=== PATIENT | female | born 1990 | race African-American/Black ===

== ENCOUNTER 2018-03-15 12:38 | Emergency (ER) | payer OTHER ==
[2018-03-15 12:42] VITALS: BMI 31.6
[2018-03-15] MEDS ORDERED: SODIUM CHLORIDE 1,000 ML IV STA (13:36)
--- NOTE | 2018-03-15 13:51 | PDOC ---
History of Present Illness - General Chief Complaint: Weakness Stated Complaint: WEAKNESS Time Seen by Provider: 03/15/18 12:58 History Source: Patient Exam Limitations: No Limitations - History of Present Illness Initial Comments: 03/15/18 14:00 28 y/o female presenting with mild generalized weakness since awakening approximately 2 hours ago. Patient is complaining of bilateral feet pain and myotatic intimately for the past month. Patient denies fever, chills, nausea, urinary complaints, abdominal pain, vaginal discharge. Patient states is approx 16 weeks and had a normal ultrasound 3 weeks ago. Th pt has a first appointment scheduled with Dr. Zhong next week . Severity: mild Associated Symptoms: reports: weakness. denies: fever/chills, headaches, nausea /vomiting, rash Past History - Travel Traveled outside of the country in the last 30 days: No - Past Medical History Allergies/Adverse Reactions: Allergies Allergy/AdvReac Type Severity Reaction Status Date / Time levofloxacin [From Levaquin] Allergy Severe Hives Verified 03/15/18 12:40 Home Medications: Ambulatory Orders No115/Iron/Folic Acid [ 19 Chewable Tablet] 1 tab PO DAILY COPD: No - Suicide/Smoking/Psychosocial Hx Smoking History: Never smoked Have you smoked in the past 12 months: No Hx Alcohol Use: No Drug/Substance Use Hx: No Substance Use Type: None Patient Lives Alone: No Lives with/in: spouse/SO Review of Systems - Review of Systems Able to Perform ROS?: No Constitutional: Yes: Weakness (generalized) HEENTM: No: Symptoms Reported Respiratory: No: Symptoms reported Cardiac (ROS): No: Symptoms Reported ABD/GI: No: Symptoms Reported : No: Symptoms Reported Musculoskeletal: No: Symptoms Reported Integumentary: No: Symptoms Reported Neurological: Yes: Weakness (mild generalized) Hematologic/Lymphatic: No: Symptoms Reported *Physical Exam - Vital Signs Last Vital Signs Temp Pulse Resp BP Pulse Ox 98.8 F 92 H 12 109/66 100 03/15/18 12:40 03/15/18 12:40 03/15/18 12:40 03/15/18 12:40 03/15/18 12:40 - Physical Exam General Appearance: Yes: Nourished, Appropriately Dressed. No: Apparent Distress HEENT: positive: EOMI, RUPAL, TMs Normal, Pharynx Normal. negative: Pale Conjunctivae Neck: positive: Supple Respiratory/Chest: positive: Lungs Clear, Normal Breath Sounds. negative: Respiratory Distress, Accessory Muscle Use Cardiovascular: positive: Regular Rhythm, Regular Rate. negative: Murmur Gastrointestinal/Abdominal: positive: Soft. negative: Tenderness Integumentary: positive: Normal Color, Warm, Moist Neurologic: positive: Motor Strength 5/5 (ambulatory). negative: Normal Mood/ Affect ED Treatment Course - LABORATORY CBC & Chemistry Diagram: 03/15/18 13:55 03/15/18 13:55 Medical Decision Making - Medical Decision Making 03/15/18 14:01 Patient here with complaints of bilateral feet aching for the past few weeks mild generalized weakness past 2 hours, and intermittent headache for the past month. Patient on exam had no neural focal deficits but during questioning stated minimal by mouth intake and fluid intake for the past week secondary to complaints of intermittent heartburn. 03/15/18 14:07 Patient concerning for electrolyte imbalance, infection, anemia, symptoms of . Patient ordered for labs, urine and IV fluids. 03/15/18 15:26 Patient states feeling much better with no complaints presently. Explained to the patient to eat small frequent meals and drinking plenty of fluids. 03/15/18 15:28 Laboratory Tests 03/15/18 03/15/18 03/15/18 13:55 13:55 13:55 WBC 8.4 Hgb 11.7 Hct 33.7 Plt Count 224 Neutrophils % 70.4 D Sodium 140 Potassium 3.7 Chloride 108 H Carbon Dioxide 26 Anion Gap 6 L BUN 8 Creatinine 0.6 Creat Clearance w eGFR > 60 Random Glucose 81 Calcium 8.7 Magnesium 1.7 L Total Bilirubin 0.3 AST 30 ALT 45 Alkaline Phosphatase 46 Total Protein 7.0 Albumin 3.3 L Urine Ketones Negative Urine Blood Negative Urine Nitrite Negative Ur Leukocyte Esterase Negative *DC/Admit/Observation/Transfer Diagnosis at time of Disposition: Weakness - Discharge Dispostion Disposition: HOME Condition at time of disposition: Improved - Referrals Referrals: Johan Lynch MD [Primary Care Provider] - - Patient Instructions Printed Discharge Instructions: Eating for Appropriate Weight Gain During , Managing Symptoms of Additional Instructions: Remember to drink plenty of fluids Throughout the day eating small frequent meals. Please follow up with her FOOD QUALITY TESTER as scheduled. Return to the ED if symptoms worsen. - Post Discharge Activity
[2018-03-15 14:05] LABS: BASO % 0.5 % (0-2.0); EOS % 1.7 % (0-4.5); HEMATOCRIT 33.7 % (32.4-45.2); HEMOGLOBIN 11.7 GM/dL (10.7-15.3); LYMPH % 19.1 % (8-40); MCH 30.9 pg (25.7-33.7); MCHC 34.6 g/dl (32.0-36.0); MEAN CELL VOLUME 89.3 fl (80-96); MEAN PLT VOLUME 7.9 fl (7.5-11.1); MONO % 8.3 % (3.8-10.2); NEUT % 70.4 % (42.8-82.8); PLATELET COUNT 224 K/MM3 (134-434); RBC 3.78 M/mm3 (3.60-5.2); RDW 13.9 % (11.6-15.6); WHITE BLOOD COUNT 8.4 K/mm3 (4.0-10.0)
[2018-03-15 14:06] LABS: URINE APPEARANCE CLEAR; URINE BILIRUBIN NEGATIVE (<2.0 mg/dL); URINE COLOR DKYELLOW; URINE GLUCOSE (UA) NEGATIVE (NEGATIVE); URINE KETONE NEGATIVE (NEGATIVE); URINE LEUK ESTERASE NEGATIVE (NEGATIVE); URINE NITRITE NEGATIVE (NEGATIVE); URINE PROTEIN NEGATIVE (NEGATIVE); URINE UROBILINOGEN NEGATIVE mg/dL (0.2-1.0)
[2018-03-15 14:20] LABS: CHLORIDE 108 mmol/L (98-107); POTASSIUM 3.7 mmol/L (3.5-5.1); SODIUM 140 mmol/L (136-145)
[2018-03-15 14:24] LABS: ALBUMIN 3.3 g/dl (3.4-5.0); ANION GAP 6 MMOL/L (8-16); BLOOD UREA NITROGEN 8 mg/dL (7-18); CALCIUM 8.7 mg/dL (8.5-10.1); CO2 26 mmol/L (21-32); GLUCOSE,RANDOM 81 mg/dL (74-106); MAGNESIUM 1.7 mg/dL (1.8-2.4)
[2018-03-15 14:29] LABS: ALK PHOS 46 U/L (45-117); BILIRUBIN,TOTAL 0.3 mg/dL (0.2-1.0); CREATININE 0.6 mg/dL (0.55-1.02); SGOT/AST 30 U/L (15-37); SGPT/ALT 45 U/L (12-78)
[2018-03-15 15:41] VITALS: BP 110/60; PULSE 82; TEMP 97.7
== END 2018-03-15 15:41 | disposition home or self-care (01) ==
LOC: JER 12:38
PROC: 3E0337Z Introduction of Electrolytic and Water Balance Substance into Peripheral Vein, Percutaneous Approach (ICD-10-PCS; principal; 2018-03-15)
DX: O26.892 Other specified pregnancy related conditions, second trimester (principal); R53.1 Weakness; Z3A.16 16 weeks gestation of pregnancy
CPT/HCPCS: 36415; 80053; 81003; 83735; 85025; 87086; 96360; 99285-25; J7030

== ENCOUNTER 2018-08-14 12:00 | Inpatient (IN) | payer OTHER ==
[2018-08-14] MEDS ORDERED: ELECTROLYTE-148 SOLN 500 ML IV ONE (12:31)
[2018-08-14] MEDS ORDERED: CITRIC ACID/SODIUM CITRATE 30 ML UNIT-DOSE CUP PO ONE (12:31)
--- NOTE | 2018-08-14 12:36 | HP ---
Past Medical History - Admission History of Present Illness: 28 y/o female here for scheduled delivery due to breech presentation. also complicated by elevated liver enzymes in 3rd trimester, no signs of pre Eclampsia or fatty liver. A1GDM, poor compliance. Advanced paternal age. No other issues/concerns. History Source: Patient, Medical Record Limitations to Obtaining History: No Limitations - Past Medical History Cardiovascular: No: HTN Pulmonary: No: Asthma Gastrointestinal: No: GERD Hepatobiliary: No: Hepatitis B, Hepatitis C ...: 1 Heme/Onc: No: Anemia Infectious Disease: No: HIV, MRSA Psych: No: Anxiety, Bipolar, Depression - Past Surgical History Past Surgical History: Yes: None Hx Myomectomy: No Hx Transabdominal Cerclage: No - Smoking History Smoking history: Never smoked Have you smoked in the past 12 months: No - Alcohol/Substance Use Hx Alcohol Use: No History of Substance Use: reports: None - Social History Usual Living Arrangement: Yes: With Spouse ADL: Independent History of Recent Travel: No Home Medications - Allergies Allergies/Adverse Reactions: Allergies Allergy/AdvReac Type Severity Reaction Status Date / Time levofloxacin [From Levaquin] Allergy Severe Hives Verified 08/01/18 10:25 Quinolones Allergy Verified 08/01/18 10:40 - Home Medications Home Medications: Ambulatory Orders No115/Iron/Folic Acid [ 19 Chewable Tablet] 1 tab PO DAILY Review of Systems - Review of Systems Constitutional: reports: No Symptoms Eyes: reports: No Symptoms HENT: reports: No Symptoms Neck: reports: No Symptoms Cardiovascular: reports: No Symptoms Respiratory: reports: No Symptoms Gastrointestinal: reports: No Symptoms Genitourinary: reports: No Symptoms Breasts: reports: No Symptoms Reported Musculoskeletal: reports: No Symptoms Integumentary: reports: No Symptoms Neurological: reports: No Symptoms Endocrine: reports: No Symptoms Hematology/Lymphatic: reports: No Symptoms Psychiatric: reports: No Symptoms Physical Exam - Maternity Constitutional: Yes: Well Nourished, No Distress, Calm Eyes: Yes: Conjunctiva Clear, EOM Intact HENT: Yes: Atraumatic, Normocephalic Neck: Yes: Supple, Trachea Midline Cardiovascular: Yes: Regular Rate and Rhythm Lungs: Clear to auscultation Breast(s): Yes: WNL - Abdominal Exam/OB Number of Fetuses: Single Presentation: Breech Category: I Accelerations: Uniform Decelerations: None - Vaginal Exam/OB Amniotic Membrane Status: Intact - Physical Exam Psychiatric: Yes: Alert, Oriented Hemorrhage Risk Assessment - Risk Factors Medium Risk Factors: Yes: None High Risk Factors: Yes: None Risk Score: 1 Risk Level: Medium Risk Problem List - Problems (1) Breech presentation of fetus Code(s): O32.1XX0 - MATERNAL CARE FOR BREECH PRESENTATION, UNSP Assessment/Plan 28 y/o with SIUP at 39 weeks, breech, for delivery AFVSS FHTs cat 1 NPO Garza Anesthesia/nursery aware
[2018-08-14 12:49] VITALS: BMI 30.7
[2018-08-14] MEDS ORDERED: ELECTROLYTE-148 SOLN 1,000 ML IV SCH (13:00)
[2018-08-14] MEDS ORDERED: OXYTOCIN 20 UNITS in 0.9% NS 40 UNIT/2,000 ML INFUS.BAG IV ONE (13:12)
[2018-08-14] MEDS ORDERED: TUBERCULIN PPD 5 TU/0.1ML SYRINGE (IN PATIENT USE ONLY) ID ONE (13:45)
[2018-08-14] MEDS ORDERED: ceFAZolin SODIUM 1 GM VIAL ONE (14:15)
[2018-08-14] MEDS ORDERED: morphine SULFATE/Preservative Free 0.5 MG/ML (1cc Syringe) ONE (14:16)
[2018-08-14] MEDS ORDERED: METHYLERGONOVINE MALEATE 0.2 MG/1 ML AMP IM PRN (14:24)
[2018-08-14] MEDS ORDERED: oxyCODONE HCL 5 MG TABLET PO PRN ×2 (14:24)
[2018-08-14] MEDS ORDERED: morphine SULFATE/Preservative Free 0.5 MG/ML (1cc Syringe) SPIN ONE (14:25)
[2018-08-14] MEDS ORDERED: PHENYLEPHRINE HCL 10 MG/1 ML SINGLE DOSE VIAL ONE (14:27)
[2018-08-14] MEDS ORDERED: OXYTOCIN 10 UNITS/ML VIAL ONE (14:34)
[2018-08-14] MEDS ORDERED: ONDANSETRON 4 MG/2 ML VIAL IVPUSH PRN (14:41)
--- NOTE | 2018-08-14 14:57 | OP ---
Operative Note - Note: Operative Date: 08/14/18 Pre-Operative Diagnosis: transverse lie Operation: primary delivery Post-Operative Diagnosis: Same as Pre-op Surgeon: Olena Roberson Automatic Spreader Operator: Blade Mcallister Anesthesiologist/CELLAR HAND: Jorge Luis Duenas Anesthesia: Spinal Specimens Removed: placenta Estimated Blood Loss (mls): 600 Operative Report Dictated: Yes
[2018-08-14] MEDS: OXYTOCIN 20 UNITS in 0.9% NS 20 UNIT/1,000 ML INFUS.BAG IV SCH (15:28)
[2018-08-14] MEDS: IBUPROFEN 800 MG/8 ML IJ IVPB PRN (17:01)
[2018-08-15 06:01] LABS: BASO % 0.4 % (0-2.0); EOS % 0.9 % (0-4.5); HEMOGLOBIN 11.3 GM/dL (10.7-15.3); LYMPH % 19.7 % (8-40); MCH 32.4 pg (25.7-33.7); MCHC 35.5 g/dl (32.0-36.0); MEAN CELL VOLUME 91.4 fl (80-96); MEAN PLT VOLUME 8.1 fl (7.5-11.1); MONO % 8.3 % (3.8-10.2); NEUT % 70.7 % (42.8-82.8); PLATELET COUNT 155 K/MM3 (134-434); WHITE BLOOD COUNT 8.6 K/mm3 (4.0-10.0)
--- NOTE | 2018-08-15 07:17 | PN ---
Progress Note (SOAP) - Subjective Chief Complaint: Pt found sitting in [facility] circ - Current Medications Current Medications: Active Medications Acetaminophen (Tylenol -) 650 mg PO Q4H PRN PRN Reason: FEVER Bisacodyl (Dulcolax Suppository -) 10 mg RC PRN PRN PRN Reason: CONSTIPATION Diphenhydramine HCl (Benadryl Injection -) 25 mg IVPUSH Q4H PRN PRN Reason: Pruritis Diphtheria/Tetanus/Acell Pertussis (Boostrix -) 0.5 ml IM .ONCE ONE Stop: 08/15/18 10:01 Oxytocin/Sodium Chloride (Normal Saline+20 Units Oxytocin -) 20 unit in 1,000 mls @ 125 mls/hr IV ASDIR MIN Last Admin: 08/14/18 15:28 Dose: 125 mls/hr Ibuprofen (Motrin -) 600 mg PO Q4H PRN PRN Reason: PAIN LEVEL 1 - 3 Ibuprofen (Caldolor Injection -) 800 mg IVPB Q8H PRN PRN Reason: PAIN LEVEL 6-10 Last Admin: 08/14/18 17:01 Dose: 800 mg Methylergonovine Maleate (Methergine Injection -) 0.2 mg IM Q4H PRN PRN Reason: Excessive Bleeding (L&D) Ondansetron HCl (Zofran Injection) 4 mg IVPUSH Q4H PRN PRN Reason: NAUSEA Oxycodone HCl (Roxicodone -) 10 mg PO Q4H PRN PRN Reason: PAIN LEVEL 7 - 10 Oxycodone HCl (Roxicodone -) 5 mg PO Q4H PRN PRN Reason: PAIN LEVEL 4 - 6 Multivit/Folic Acid/Iron ( Vitamins (Sjr) -) 1 tab PO DAILY [facility] Simethicone (Mylicon -) 80 mg PO Q4H PRN PRN Reason: GAS - Objective Vital Signs: Vital Signs Temperature 99.0 F 08/15/18 02:00 Pulse Rate 97 H 08/15/18 02:00 Respiratory Rate 20 08/15/18 05:00 Blood Pressure 104/63 08/15/18 02:00 O2 Sat by Pulse Oximetry (%) 99 08/14/18 16:00 Constitutional: Yes: Well Nourished, No Distress Gastrointestinal: Yes: WNL, Soft, Abdomen, Obese Musculoskeletal: Yes: WNL Extremities: Yes: WNL Edema: No Wound/Incision: Yes: Clean/Dry, Dressing Dry and Intact Labs Lab Results: CBC, BMP 08/15/18 05:56 Assessment/Plan POD 1 stable SP CS Plan COntinue present management
[2018-08-15] MEDS: IBUPROFEN 800 MG/8 ML IJ IVPB PRN (07:30)
--- NOTE | 2018-08-15 08:39 | PN ---
Progress Note (short form) - Note Progress Note: Anesthesia POD#1 S/P under Spinal with DM VSS,clear liquids started,no N/V Doing fine Loni Streeter MD.
[2018-08-15] MEDS: PRENATAL VITAMINS W/ FOLIC ACID TABLET (FP) PO SCH (09:20)
[2018-08-15] MEDS ORDERED: DIPHTH,PERTUSS(ACELL),TET 0.5 ML DISP.SYRIN IM ONE (10:00)
--- NOTE | 2018-08-15 10:24 | OP ---
DATE OF OPERATION: 08/14/2018 PREOPERATIVE DIAGNOSIS: Fetus in transverse lie. POSTOPERATIVE DIAGNOSIS: Fetus in transverse lie. PROCEDURE: Primary low transverse section. SURGEON: Olena Roberson MD MANDARIN TUTOR: Blade Mcallister PA-C ANESTHESIA: Spinal. ANESTHESIOLOGIST: Jorge Luis Duenas MD COMPLICATIONS: None. ESTIMATED BLOOD LOSS: 600 mL. COUNTS: Sponge, needle, and instrument counts correct. DISPOSITION: Stable to PACU. SPECIMENS REMOVED: Placenta. BRIEF HISTORY AND PROCEDURE: Patient is a 28-year-old female who had been seen in the office with full term , noted to have a baby in breech presentation. The patient was scheduled for a primary delivery on August 14, 2018. Upon admission, consents were signed and one final evaluation with a bedside ultrasound revealed a fetus in a transverse position with the head to maternal right. At this point, the decision was made to proceed with the planned section. She was taken back to the operating room, given spinal anesthesia, and placed in a dorsal supine position. A Garza catheter had been placed under sterile conditions. She was prepped and draped in the usual sterile fashion, and a hard time-out was performed. A Pfannenstiel skin incision was made in the skin with the scalpel and carried to the underlying layer of rectus fascia sharply. The fascia was incised on either side of the midline sharply, and the fascia was tented upward and dissected off the underlying layer of rectus muscle sharply. The musculature was identified and laterally. The peritoneum was identified and entered bluntly to allow for adequate room for delivery. The bladder blade was then inserted. A transverse incision was created on the lower uterine segment and extended in a superior lateral direction bluntly. The infant was then able to be verted into a vertex position and delivered without difficulty. The anterior and posterior shoulders were delivered without difficulty, and the remainder of the delivered with ease. The cord was clamped twice and cut in between. The was taken over to the warmer to be assessed by Neonatology staff, where scores of 9 and 9 were confirmed. The placenta was delivered with the 3-vessel cord and was manually extracted and noted to be intact. The uterus was exteriorized from the abdomen, inspected of amniotic membrane and blood clot with dry lap sponge. The hysterotomy was reapproximated with a double-layer closure first using 1 Vicryl in a running locked fashion, second using a 0 Biosyn in a running locked fashion. Excellent hemostasis was achieved. Posterior cul-se-sac was suctioned. Bilateral tubes and ovaries were noted to be normal. The uterus was placed back into the abdomen. Bilateral gutters were inspected and cleared of all blood clot and debris. Hysterotomy was again reexamined and noted to be hemostatic. The peritoneum was reapproximated in a running fashion using 2-0 chromic. The musculature was reapproximated with 2 interrupted sutures using 2-0 chromic and 0 Biosyn. The fascia was reapproximated using 1 Vicryl in a running fashion. The subcutaneous tissue was irrigated and reapproximated in a running fashion using 1 Vicryl suture, and the skin was reapproximated using 3-0 Vicryl in a subcuticular fashion, and Steri-Strips were applied. Patient tolerated the procedure well and was recovering in stable condition in the PACU after the procedure. Sponge, needle and instrument counts were reported to be correct at the end of the case. OLENA ROBERSON DO /[id number] MTDD
[2018-08-15] MEDS ORDERED: BISACODYL 10 MG SUPP.RECT RC PRN (14:24)
[2018-08-15] MEDS: SIMETHICONE 80 MG TAB.CHEW (FP) PO PRN (16:27)
[2018-08-15] MEDS: IBUPROFEN 600 MG TABLET (FP) PO PRN ×2 (16:27→21:31)
[2018-08-15] MEDS: ACETAMINOPHEN 325 MG TABLET (FP) PO PRN ×2 (16:27→21:31)
[2018-08-16] MEDS: IBUPROFEN 600 MG TABLET (FP) PO PRN ×3 (08:16→22:05)
[2018-08-16] MEDS: SIMETHICONE 80 MG TAB.CHEW (FP) PO PRN ×3 (08:16→22:05)
[2018-08-16] MEDS: ACETAMINOPHEN 325 MG TABLET (FP) PO PRN ×3 (08:17→22:05)
[2018-08-16] MEDS: PRENATAL VITAMINS W/ FOLIC ACID TABLET (FP) PO SCH (10:01)
--- NOTE | 2018-08-16 10:15 | PN ---
Progress Note (SOAP) - Subjective Chief Complaint: Pt found sitting in [facility] circ - Current Medications Current Medications: Active Medications Acetaminophen (Tylenol -) 650 mg PO Q4H PRN PRN Reason: FEVER Last Admin: 08/16/18 08:17 Dose: 650 mg Bisacodyl (Dulcolax Suppository -) 10 mg RC PRN PRN PRN Reason: CONSTIPATION Diphenhydramine HCl (Benadryl Injection -) 25 mg IVPUSH Q4H PRN PRN Reason: Pruritis Oxytocin/Sodium Chloride (Normal Saline+20 Units Oxytocin -) 20 unit in 1,000 mls @ 125 mls/hr IV ASDIR MIN Last Admin: 08/14/18 15:28 Dose: 125 mls/hr Ibuprofen (Motrin -) 600 mg PO Q4H PRN PRN Reason: PAIN LEVEL 1 - 3 Last Admin: 08/16/18 08:16 Dose: 600 mg Ibuprofen (Caldolor Injection -) 800 mg IVPB Q8H PRN PRN Reason: PAIN LEVEL 6-10 Last Admin: 08/15/18 07:30 Dose: 800 mg Methylergonovine Maleate (Methergine Injection -) 0.2 mg IM Q4H PRN PRN Reason: Excessive Bleeding (L&D) Ondansetron HCl (Zofran Injection) 4 mg IVPUSH Q4H PRN PRN Reason: NAUSEA Oxycodone HCl (Roxicodone -) 10 mg PO Q4H PRN PRN Reason: PAIN LEVEL 7 - 10 Oxycodone HCl (Roxicodone -) 5 mg PO Q4H PRN PRN Reason: PAIN LEVEL 4 - 6 Multivit/Folic Acid/Iron ( Vitamins (Sjr) -) 1 tab PO DAILY [facility] Last Admin: 08/16/18 10:01 Dose: 1 tab Simethicone (Mylicon -) 80 mg PO Q4H PRN PRN Reason: GAS Last Admin: 08/16/18 08:16 Dose: 80 mg - Objective Vital Signs: Vital Signs Temperature 98.8 F 08/16/18 08:58 Pulse Rate 76 08/16/18 08:58 Respiratory Rate 20 08/16/18 08:58 Blood Pressure 111/60 08/16/18 08:58 O2 Sat by Pulse Oximetry (%) 99 08/14/18 16:00 Constitutional: Yes: Well Nourished, No Distress Cardiovascular: Yes: WNL Respiratory: Yes: WNL Gastrointestinal: Yes: WNL, Soft ....Post : Yes: Uterus firm, Uterus non-tender Breast(s): Yes: WNL Musculoskeletal: Yes: WNL Extremities: Yes: WNL Edema: No Wound/Incision: Yes: Clean/Dry, Well Approximated, Dressing Removed Neurological: Yes: WNL, Alert, Oriented Labs Lab Results: CBC, BMP 08/15/18 05:56 Assessment/Plan POD 2 stable SP CS Plan COntinue present management
[2018-08-16] MEDS: OXYTOCIN 20 UNITS in 0.9% NS 20 UNIT/1,000 ML INFUS.BAG IV SCH (20:13)
[2018-08-17 08:15] LABS: BASO % 0.4 % (0-2.0); EOS % 1.8 % (0-4.5); HEMATOCRIT 33.1 % (32.4-45.2); HEMOGLOBIN 11.7 GM/dL (10.7-15.3); LYMPH % 27.3 % (8-40); MCHC 35.4 g/dl (32.0-36.0); MEAN CELL VOLUME 93.2 fl (80-96); MEAN PLT VOLUME 8.1 fl (7.5-11.1); MONO % 8.8 % (3.8-10.2); NEUT % 61.7 % (42.8-82.8); PLATELET COUNT 178 K/MM3 (134-434); RBC 3.55 M/mm3 (3.60-5.2); RDW 15.2 % (11.6-15.6); WHITE BLOOD COUNT 9.1 K/mm3 (4.0-10.0)
--- NOTE | 2018-08-17 08:17 | PN ---
Post Progress Note - Subjective Subjective: 28 yo Para 1 status post primary , seen and evaluated. Doing well. Post Day: 3 Type of Delivery: Primary C/S Vital Signs: Vital Signs Temperature 98.7 F 08/16/18 21:38 Pulse Rate 80 08/16/18 21:38 Respiratory Rate 18 08/16/18 21:38 Blood Pressure 102/54 L 08/16/18 21:38 O2 Sat by Pulse Oximetry (%) 99 08/14/18 16:00 Breast Exam: Yes: Soft Uterus: Yes: Fundus Firm Incision: Yes: Sutures intact Abdomen/GI: Yes: Abdomen soft, Tolerating PO Lochia: Yes: Rubra Lochia, amount: Small Extremities: Yes: Calves non-tender Activity: Ambulating - Labs Labs: CBC WBC 8.6 K/mm3 (4.0-10.0) 08/15/18 05:56 RBC 3.50 M/mm3 (3.60-5.2) L 08/15/18 05:56 Hgb 11.3 GM/dL (10.7-15.3) 08/15/18 05:56 Hct 32.0 % (32.4-45.2) L 08/15/18 05:56 MCV 91.4 fl (80-96) 08/15/18 05:56 MCH 32.4 pg (25.7-33.7) 08/15/18 05:56 MCHC 35.5 g/dl (32.0-36.0) 08/15/18 05:56 RDW 15.0 % (11.6-15.6) 08/15/18 05:56 Plt Count 155 K/MM3 (134-434) 08/15/18 05:56 MPV 8.1 fl (7.5-11.1) 08/15/18 05:56 Absolute Neuts (auto) 6.1 K/mm3 (1.5-8.0) 08/15/18 05:56 Neutrophils % 70.7 % (42.8-82.8) 08/15/18 05:56 Lymphocytes % 19.7 % (8-40) 08/15/18 05:56 Monocytes % 8.3 % (3.8-10.2) 08/15/18 05:56 Eosinophils % 0.9 % (0-4.5) 08/15/18 05:56 Basophils % 0.4 % (0-2.0) 08/15/18 05:56 Nucleated RBC % 0 % (0-0) 08/15/18 05:56 Problem List - Problems (1) Status post primary low transverse section Code(s): Z98.891 - HISTORY OF UTERINE SCAR FROM PREVIOUS SURGERY Assessment/Plan Status post primary Stable Ambulation Analgesia as needed Continue post op care
[2018-08-17] MEDS: PRENATAL VITAMINS W/ FOLIC ACID TABLET (FP) PO SCH (09:30)
[2018-08-17] MEDS: IBUPROFEN 600 MG TABLET (FP) PO PRN ×2 (09:35→22:23)
[2018-08-17] MEDS: SIMETHICONE 80 MG TAB.CHEW (FP) PO PRN ×2 (09:36→22:24)
[2018-08-17] MEDS: ACETAMINOPHEN 325 MG TABLET (FP) PO PRN ×2 (09:36→22:23)
[2018-08-18] MEDS: IBUPROFEN 600 MG TABLET (FP) PO PRN (08:27)
[2018-08-18] MEDS: SIMETHICONE 80 MG TAB.CHEW (FP) PO PRN (08:28)
[2018-08-18] MEDS: ACETAMINOPHEN 325 MG TABLET (FP) PO PRN (08:28)
[2018-08-18 09:33] VITALS: BP 108/57; PULSE 74; TEMP 98.9
[2018-08-18] MEDS: PRENATAL VITAMINS W/ FOLIC ACID TABLET (FP) PO SCH (10:00)
--- NOTE | 2018-08-25 16:20 | PATH ---
Surgical Pathology Report Patient Name: ULYSSES SAINI [facility]. Rec. #: [id number] /Age/Gender: 1990 (Age: 28) / F Account: [id number] Location: [facility] OBS/COSTUME MAKER Taken: 08/14/2018 Received: 08/15/2018 Reported: 08/25/2018 Physicians: Olena Roberson M.D. Specimen(s) Received PLACENTA Clinical History Final Diagnosis PLACENTA: THIRD TRIMESTER PLACENTA. TRIVASCULAR CORD. MEMBRANES WITH NO DIAGNOSTIC ABNORMALITIES. He Electronically Signed Alex Vyas M.D. Gross Description The specimen is received fresh labeled placenta and is a 550 gram, 18.0 x 15.0 x 3.4 cm. placenta with attached membranes and umbilical cord. The attached membranes are ramirez, translucent with focal opacities and insert marginally. The umbilical cord measures 42 cm. in length and averages 1.3 cm. in diameter. The cord inserts eccentrically, 2.5 cm. to the nearest margin. No true knots or strictures are identified. Cut surface of the umbilical cord reveals 3 vessels. The surface is vickers blue with moderate fibrin deposition and appropriate caliber vessels. The maternal surface is red-brown with focal defects. Sectioning reveals red-brown, spongy parenchyma. No lesions are identified. Hearing Impaired Teacher sections are submitted in three cassettes as follows: 1- membrane rolls and umbilical cord; 2-3- full thickness sections of placenta. /08/22/[facility]
== END 2018-08-18 13:30 | disposition home or self-care (01) | DRG 540 ==
LOC: JLDR 12:00 → J3W 16:38
PROVIDERS: ADMIT Obstetrics & Gynecology; ATTEND Obstetrics & Gynecology
PROC: 10D00Z1 Extraction of Products of Conception, Low, Open Approach (ICD-10-PCS; principal; 2018-08-14)
DX: O32.2XX0 Maternal care for transverse and oblique lie, not applicable or unspecified (principal); O32.1XX0 Maternal care for breech presentation, not applicable or unspecified; Z3A.39 39 weeks gestation of pregnancy; Z37.0 Single live birth
CPT/HCPCS: 36415; 85025; 88307-TC

== ENCOUNTER 2019-03-10 08:59 | Emergency (ER) | payer OTHER ==
[2019-03-10 09:04] VITALS: TEMP 98.3; BMI 28.1
[2019-03-10] MEDS ORDERED: KETOROLAC TROMETHAMINE 30 MG/1 ML VIAL IVPUSH ONE (09:31)
[2019-03-10] MEDS ORDERED: SODIUM CHLORIDE 1,000 ML IV STA (09:31)
--- NOTE | 2019-03-10 09:48 | PDOC ---
History of Present Illness - General Chief Complaint: Pain Stated Complaint: ABD. PAIN Time Seen by Provider: 03/10/19 09:17 History Source: Patient - History of Present Illness Timing/Duration: reports: getting worse Quality: reports: sharpness Past History - Past Medical History Allergies/Adverse Reactions: Allergies Allergy/AdvReac Type Severity Reaction Status Date / Time levofloxacin [From Levaquin] Allergy Severe Hives Verified 03/10/19 09:04 Quinolones Allergy Verified 03/10/19 09:04 Home Medications: Ambulatory Orders Ibuprofen [Motrin -] 600 mg PO QID #28 tablet 03/10/19 Asthma: No Cancer: No Cardiac Disorders: No COPD: No Diabetes: No HTN: No Seizures: No Thyroid Disease: No - Reproductive History (#): 1 Para: 0 - Suicide/Smoking/Psychosocial Hx Smoking History: Never smoked Have you smoked in the past 12 months: No Hx Alcohol Use: No Drug/Substance Use Hx: No Substance Use Type: None Hx Substance Use Treatment: No Review of Systems - Review of Systems Constitutional: No: Chills, Fever ABD/GI: Yes: Abdominal cramping. No: Nausea, Vomiting : No: Dysuria, Flank Pain, Hematuria *Physical Exam - Vital Signs Last Vital Signs Temp Pulse Resp BP Pulse Ox 98.3 F 79 18 121/75 99 03/10/19 09:01 03/10/19 09:01 03/10/19 09:01 03/10/19 09:01 03/10/19 09:01 - Physical Exam General Appearance: Yes: Appropriately Dressed ED Treatment Course - LABORATORY CBC & Chemistry Diagram: 03/10/19 10:10 03/10/19 10:10 - RADIOLOGY Radiology Studies Ordered: Category Date Time Status ABDOMEN & PELVIS CT WITH CONTR [CT] Stat CT Scan 03/10/19 09:30 Ordered Medical Decision Making - Medical Decision Making 03/10/19 09:36 29-year-old female, s/p csection remotely, here with severe abdominal pain x 1 week, on and off that worsened yesterday. States pain is sharp with an intensity of 10 on a 10 now. No nausea, vomiting, change to bowel movements, dysuria, vaginal discharge, fever or chills. No history of similar pain. Not currently sexually active per ot see exam Abd pain Stable w/ diffuse ttp/guarding on exam Ddx many and includes appy, diverticulitis, biliary, torsion, PID, r/o -pain control -labs -CT 03/10/19 13:58 CT read as large cystic structure deep to R hemipelvis w/ fluid, cyst vs TOA, appendix unremarkable. Pain currently controlled. Pelvic exam wnl. US pending 03/10/19 15:09 US read as 4.4cm R ovarian cyst w/ small amount of FF, ?hemorrhagic cyst. Patient's pain currently controlled. Given size of cyst and increased risk of torsion, will c/w DIRECT SALES REPRESENTATIVE at this time to schedule close f/u 03/10/19 15:24 Case d/w Dr. Patten of DIRECT SALES REPRESENTATIVE, who was informed of ultrasound report. MChema also made aware that [facility], but called office while she was in ED and was told that she would not be able to be seen untill next week. Per Dr. Oneil, patient can wait to be seen as does not does not need immediate follow-up per MD. Patient made aware of this and told that she should come to ED for any worsening of symptoms, otherwise *DC/Admit/Observation/Transfer Diagnosis at time of Disposition: Ovarian cyst Qualifiers: Laterality: right Qualified Code(s): N83.201 - Unspecified ovarian cyst, right side - Discharge Dispostion Disposition: HOME Condition at time of disposition: Improved - Prescriptions Prescriptions: Ibuprofen [Motrin -] 600 mg PO QID #28 tablet - Referrals Referrals: Johan Lynch MD [Primary Care Provider] - - Patient Instructions Printed Discharge Instructions: Ovarian Cyst Additional Instructions: You have a right-sided ovarian cyst on your ultrasound. Size of cyst is about 4.4 cm. The cyst is at increased risk for twisting on itself and interrupting blood supply to the ovary. I called [facility] and they are able to see you at 1: 45 pm tomorrow take motrin for pain as directed Return to ER for worsening of symptoms as discussed in ED - Post Discharge Activity
[2019-03-10] MEDS ORDERED: KETOROLAC TROMETHAMINE 30 MG/1 ML VIAL ONE (09:56)
[2019-03-10 10:26] LABS: BASO % 0.6 % (0-2.0); EOS % 1.9 % (0-4.5); HEMATOCRIT 38.1 % (32.4-45.2); HEMOGLOBIN 12.7 GM/dL (10.7-15.3); LYMPH % 39.5 % (8-40); MCH 29.2 pg (25.7-33.7); MCHC 33.4 g/dl (32.0-36.0); MEAN CELL VOLUME 87.6 fl (80-96); MEAN PLT VOLUME 8.1 fl (7.5-11.1); PLATELET COUNT 217 K/MM3 (134-434); RBC 4.34 M/mm3 (3.60-5.2); RDW 13.7 % (11.6-15.6); WHITE BLOOD COUNT 5.3 K/mm3 (4.0-10.0)
[2019-03-10 10:36] LABS: PH,URINE 6.5 (5.0-8.0); URINE APPEARANCE CLEAR; URINE BILIRUBIN NEGATIVE (NEGATIVE); URINE COLOR YELLOW; URINE GLUCOSE (UA) NEGATIVE (NEGATIVE); URINE KETONE NEGATIVE (NEGATIVE); URINE LEUK ESTERASE NEGATIVE (NEGATIVE); URINE NITRITE NEGATIVE (NEGATIVE); URINE PROTEIN NEGATIVE (NEGATIVE)
[2019-03-10 10:52] LABS: ALBUMIN 3.8 g/dl (3.4-5.0); BILIRUBIN,TOTAL 0.6 mg/dL (0.2-1); BLOOD UREA NITROGEN 9.8 mg/dL (7-18); CALCIUM 9.1 mg/dL (8.5-10.1); CREATININE 0.7 mg/dL (0.55-1.3); POTASSIUM 4.1 mmol/L (3.5-5.1); TOT PROT 7.6 g/dl (6.4-8.2)
[2019-03-10 15:53] VITALS: BP 106/74; PULSE 83
== END 2019-03-10 15:53 | disposition home or self-care (01) ==
LOC: JER 08:59
PROC: 3E0333Z Introduction of Anti-inflammatory into Peripheral Vein, Percutaneous Approach (ICD-10-PCS; principal; 2019-03-10)
PROC: 3E0337Z Introduction of Electrolytic and Water Balance Substance into Peripheral Vein, Percutaneous Approach (ICD-10-PCS; 2019-03-10)
DX: N83.201 Unspecified ovarian cyst, right side (principal)
CPT/HCPCS: 36415; 74177-TC; 76830-TC; 76856-TC; 80053; 81003; 83690; 84703; 85025; 96361; 96374; 99283-25; J7030

== ENCOUNTER 2021-02-24 20:37 | Emergency (ER) | payer OTHER ==
[2021-02-24 20:41] VITALS: BP 115/73; PULSE 74; TEMP 97; BMI 25.8
== END 2021-02-24 22:28 | disposition home or self-care (01) ==
LOC: JERFT 20:37
DX: T16.1XXA Foreign body in right ear, initial encounter (principal)
CPT/HCPCS: 99281-25

== ENCOUNTER 2021-06-30 19:35 | Emergency (ER) | payer OTHER ==
[2021-06-30 19:40] VITALS: BP 111/73; PULSE 90; TEMP 97; BMI 26.6
[2021-06-30] MEDS ORDERED: IBUPROFEN 600 MG TABLET (FP) PO ONE ×2 (20:28→20:32)
== END 2021-06-30 20:36 | disposition home or self-care (01) ==
LOC: JERFT 19:35 → JER 19:35 → JERFT 20:36
DX: H60.92 Unspecified otitis externa, left ear (principal)
CPT/HCPCS: 99283-25